=== PATIENT | male | born 1980 | race Caucasian/White ===

== ENCOUNTER 2019-06-08 07:24 | Outpatient (CLI) | payer OTHER | END 2019-06-08 09:46 | disposition home or self-care (01) | LOC: RAD 07:24 → MAMO-SONO 08:15 → RAD 09:46 | DX: K59.09 Other constipation (principal); K30 Functional dyspepsia; K29.70 Gastritis, unspecified, without bleeding; E80.6 Other disorders of bilirubin metabolism; R13.19 Other dysphagia ==